=== PATIENT | female | born 1930 | race Caucasian/White ===

== ENCOUNTER → 2016-12-17 | Outpatient (CLI) | payer OTHER, BC ==
[~2016-12-17] MED LIST: ALBUAER2 INH; AMLO-110 PO; ATV/1 PO; CALC0.2510 PO; CYAN500T PO; ESTR10TA PV; GADAVIST IV PRN; GLC/500 PO; LEVO50CA2 PO; METO1TAB31 PO; PRVC10 PO; SYMIN/8045 INH; SYSTANE OPB; ZNTT/150 PO; [UNRECOGNIZED DRUG - OTHER] PO
--- NOTE | 2016-12-17 12:15 | DIAGNOSTIC IMAGING REPORT ---
MRI OF THE BRAIN COMBO CLINICAL HISTORY: Follow-up meningioma. COMPARISON STUDY: MRI of the brain dated 12/13/2015 and 07/09/2014. TECHNIQUE: MRI of the brain was performed utilizing various T1 and T2-weighted sequences in the axial, sagittal, and coronal planes. Contrast-enhanced sequences were acquired following the administration of 7.5 cc of Gadavist. FINDINGS: Brain parenchyma: There are age-related involutional changes noting mild to moderate patchy subcortical and periventricular microangiopathic disease. There is no hemorrhage or mass effect. There is no restricted diffusion typical for acute ischemia. There is unchanged appearance of a smoothly marginated 1.2 cm extra-axial nodule along the right posterior parietal convexity. This is best seen on axial postcontrast image #20, and the lesion is typical for a small meningioma. There is minimal restricted diffusion within this lesion. No additional enhancing mass lesion is identified on the postcontrast images. Anaya-white matter differentiation is preserved. No extra-axial fluid collection is seen. The cerebellar tonsils are normal in configuration. Ventricles, sulci, and cisterns: Prominent second or to involutional change. Pituitary and sella: The pituitary gland appears slightly heterogeneous and is similar to previous. Intracranial vasculature: Normal flow voids are maintained at the skull base. Orbits: The bony orbits are grossly intact. Orbital contents are normal in appearance noting bilateral ocular lens implants. Sinuses and mastoids: There is mild to moderate mucosal thickening within the right maxillary antrum. Trace mucosal thickening is seen within the ethmoid sinuses. There are bilateral mastoid effusions. Calvarium: Unremarkable. Cervical cord: Partially visualized cervical spinal cord is normal in morphology and signal intensity. IMPRESSION: 1. Unchanged appearance of a 12 mm homogeneously enhancing extra-axial nodule along the right posterior parietal convexity. This is typical for a meningioma and unchanged from prior studies. There is no associated mass effect. 2. No acute intracranial abnormality is seen. 3. Bilateral mastoid effusions. Electronically signed by: Familia Santiago M.D. 12/17/2016 12:14 PM Dictated Date/Time: 12/17/2016 12:08 PM
== END | disposition home or self-care (01) ==
LOC: C.MRIBC 10:45
PROVIDERS: ATTEND Psychiatry & Neurology Neurology
DX: D32.9 Benign neoplasm of meninges, unspecified (principal); H74.8X3 Other specified disorders of middle ear and mastoid, bilateral

== ENCOUNTER → 2016-12-21 | Outpatient (CLI) | payer OTHER, BC ==
[~2016-12-21] MED LIST changes: -GADAVIST IV PRN
--- NOTE | 2016-12-21 15:28 | DIAGNOSTIC IMAGING REPORT ---
CT OF THE CHEST WITHOUT IV CONTRAST CLINICAL HISTORY: Cough. COMPARISON STUDY: Chest CT January 12, 2013 and chest radiograph October 12, 2016. CT DOSE: 342.36 mGycm TECHNIQUE: Axial images of the chest were obtained without IV contrast. Images were reviewed in the axial, sagittal, and coronal planes. IV contrast was not administered for this examination. FINDINGS: Mild elevation of the right hemidiaphragm is again noted. Central airways are patent. The heart is mildly enlarged. There is no pericardial effusion. There is moderate coronary artery calcification. No consolidation is identified to suggest pneumonia. Subpleural and ground glass opacities represent atelectasis. The bony thorax is unremarkable. The gallbladder surgically absent. A water attenuation right renal lesion is partially imaged on this exam. This was shown to represent a cyst on renal ultrasound of November 26, 2014. No enlarged thoracic lymph nodes are present. IMPRESSION: 1. No areas of consolidation to suggest pneumonia. 2. Scattered linear and ground glass opacities suggestive of atelectasis. 3. No thoracic lymphadenopathy. Electronically signed by: Alonso Briones M.D. 12/21/2016 3:27 PM Dictated Date/Time: 12/21/2016 3:18 PM
== END | disposition home or self-care (01) ==
LOC: C.CTS 09:50
PROVIDERS: ATTEND Internal Medicine Pulmonary Disease
DX: R05 Cough (principal); R91.8 Other nonspecific abnormal finding of lung field

== ENCOUNTER → 2017-01-19 | Outpatient (CLI) | payer OTHER, BC ==
--- NOTE | 2017-01-19 15:28 | MAMMOGRAPHY REPORT ---
BILATERAL DIGITAL SCREENING MAMMOGRAM WITH CAD: 01/19/2017 CLINICAL HISTORY: Routine screening. Patient has no complaints. TECHNIQUE: Bilateral CC and MLO views were obtained. Current study was also evaluated with a Comput er Aided Detection (CAD) system. COMPARISON: Comparison is made to exams dated: 01/10/2016 mammogram, 01/08/2015 mammogram, 12/29/2012 mammogram, 12/28/2011 mammogram, 12/25/2010 mammogram, and 12/24/2009 mammogram - [facility]. BREAST COMPOSITION: There are scattered areas of fibroglandular density in both breasts. FINDINGS: The patient did not tolerate full compression. There are scattered benign rim calcificati ons in the breasts. No suspicious mass, architectural distortion or cluster of suspicious microcalc ifications is seen. IMPRESSION: ACR BI-RADS CATEGORY 1: NEGATIVE There is no mammographic evidence of malignancy. A 1 year screening mammogram is recommended. The p atient will receive written notification of the results. Approximately 10% of breast cancers are not detected with mammography. A negative mammographic repor t should not delay biopsy if a clinically suggestive mass is present. Miriam Harmon M.D. ay/:01/19/2017 14:11:18 Heating And Ventilation Engineer: Kera HARMONR, M, [facility] letter sent: Normal 1/2 BI-RADS Code: ACR BI-RADS Category 1: Negative
== END | disposition home or self-care (01) ==
LOC: C.MAMM 13:09
PROVIDERS: ATTEND Obstetrics & Gynecology
DX: Z12.31 Encounter for screening mammogram for malignant neoplasm of breast (principal)

== ENCOUNTER → 2017-03-10 | Outpatient (CLI) | payer OTHER, BC ==
[~2017-03-10] MED LIST changes: +METO-478 PO; -METO1TAB31 PO
[2017-03-10 09:59] LABS: ESTIMATED AVERAGE GLUCOSE 134 mg/dl; HA1C FLAG Normal (Normal)
[2017-03-10 10:24] LABS: PROLACTIN 13.82 ng/mL
[2017-03-10 10:29] LABS: AST/SGOT 17 U/L (15-37); BLOOD UREA NITROGEN 31 mg/dl (7-18); BUN/CREATININE RATIO 25.6 (10-20); CALCIUM 9.4 mg/dl (8.5-10.1); CARBON DIOXIDE 26 mmol/L (21-32); CHLORIDE 108 mmol/L (98-107); GLUCOSE 101 mg/dl (70-99); POTASSIUM 4.1 mmol/L (3.5-5.1); SODIUM 141 mmol/L (136-145)
[2017-03-10 10:54] LABS: ALT/SGPT 42 U/L (12-78); CHOLESTEROL 211 mg/dl (0-200); CHOLESTEROL/HDL RATIO 4.2; HDL CHOLESTEROL 50 mg/dl; LDL CHOLESTEROL CALCULATED 121 mg/dl; THYROID STIMULATING HORMONE 0.907 uIu/ml (0.300-4.500); TRIGLYCERIDES 200 mg/dl (0-150); VERY LOW DENSITY LIPOPROT CALC 40 mg/dl
== END | disposition home or self-care (01) ==
LOC: C.LAB1850 08:44
PROVIDERS: ATTEND Internal Medicine Endocrinology, Diabetes & Metabolism
DX: E03.9 Hypothyroidism, unspecified (principal); M81.0 Age-related osteoporosis without current pathological fracture; E55.9 Vitamin D deficiency, unspecified; I10 Essential (primary) hypertension; E23.6 Other disorders of pituitary gland; E78.5 Hyperlipidemia, unspecified; E06.3 Autoimmune thyroiditis; Z86.39 Personal history of other endocrine, nutritional and metabolic disease; E11.9 Type 2 diabetes mellitus without complications; E66.9 Obesity, unspecified

== ENCOUNTER → 2017-04-01 | Outpatient (CLI) | payer OTHER, BC ==
--- NOTE | 2017-04-01 09:26 | DIAGNOSTIC IMAGING REPORT ---
(BARIUM SWALLOW) ESOPHAGUS CLINICAL HISTORY: Difficulty swallowing. Primary liquid dysphagia. COMPARISON STUDY: None. FLUOROSCOPY TIME: 0.5 minutes. FINDINGS: 7 fluoroscopic images were obtained. Note was made of moderate silent tracheal aspiration with the initial swallows. Therefore, this study was not completed. However, no definite esophageal mass or stricture was identified. Suspected moderate esophageal dysmotility is noted. Sensitivity for detection of mucosal lesions is diminished on the exam. IMPRESSION: 1. Moderate silent tracheal aspiration with initial swallows on this exam. As a result, this study was not completed but no definite mass or stricture was identified within the esophagus. A modified barium swallow could be obtained to further evaluate the swallowing mechanism. 2. Suspected moderate esophageal dysmotility. Electronically signed by: Alonso Briones M.D. 04/01/2017 9:24 AM Dictated Date/Time: 04/01/2017 9:22 AM
== END | disposition home or self-care (01) ==
LOC: C.RAD 08:35
DX: R13.10 Dysphagia, unspecified (principal)

== ENCOUNTER → 2017-06-09 | Outpatient (CLI) | payer OTHER, BC ==
[~2017-06-09] MED LIST changes: -METO-478 PO; +METO1TAB31 PO
[2017-06-09 13:36] LABS: URINE APPEARANCE CLEAR (CLEAR); URINE BILIRUBIN NEG (NEG); URINE COLOR YELLOW; URINE EPITHELIAL CELL AUTO >30 /lpf (0-5); URINE NITRITE NEG (NEG); URINE PH 6.5 (4.5-7.5); URINE SPECIFIC GRAVITY 1.017 (1.000-1.030); UROBILINOGEN NEG (NEG)
[2017-06-09 13:47] LABS: MANUAL MICROSCOPIC REQUIRED? NO; REVIEW REQ? YES
== END | disposition home or self-care (01) ==
LOC: C.LAB1850 11:53
PROVIDERS: ATTEND Internal Medicine
DX: R39.9 Unspecified symptoms and signs involving the genitourinary system (principal)

== ENCOUNTER → 2017-06-18 | Outpatient (CLI) | payer OTHER, BC ==
--- NOTE | 2017-06-18 14:02 | DIAGNOSTIC IMAGING REPORT ---
VIDEO SWALLOW HISTORY: R13.10 Difficulty [id number] Abnormal barium [id number] TECHNIQUE: Video fluoroscopic evaluation of swallowing was performed in the AP and lateral projections by the speech pathology staff. The patient is fed nectar-thick and thin liquid barium, a barium coated wafer, and barium pudding. FLUOROSCOPY TIME: 3.4 minutes. A cine loop submitted. COMPARISON STUDY: Barium swallow 04/01/2017. FINDINGS: There is normal hyoid excursion and epiglottic deflection. No significant penetration or aspiration identified. Swallowing function is within normal limits. Mild vallecular residue with the thicker barium consistencies. Mild esophageal dysmotility. IMPRESSION: 1. No aspiration identified. Mild esophageal dysmotility 2. Please see the speech pathologist report for detailed findings and recommendations. Electronically signed by: Arpan Queen M.D. 06/18/2017 2:01 PM Dictated Date/Time: 06/18/2017 1:59 PM
--- NOTE | 2017-06-18 15:40 | SWALLOWING EVALUATION ---
HISTORY: This 86 year old woman was referred for a video swallow study at [facility] in order to rule out aspiration and identify the safest consistencies for optimal oral intake. PMH is significant for HTN, anemia, GERD, asthma, anxiety, HLD, and hyperthyroidism. She reports having swallowing difficulties where she will cough and choke on foods that scatter, such as rice. The patient participated in a Barium Swallow study on 04/01/17, where moderate tracheal aspiration was found and the study was terminated. This, in addition to her c/o above, prompted this study. PROCEDURE: The patient was seen in the Radiology Department of [facility] for the V[facility]SS. Cursory examination of the oral cavity revealed natural dentition in fair condition. Movement of the articulators was wnl. The patient was seated on a stool and was viewed in both the Anterior-Posterior (A-P) and Lateral planes. Volitional phonation exercises completed in the A-P plane revealed bilateral vocal fold movement and vocal intensity was judged to be wnl. In the lateral plane, the patient was given the following boluses: 1 tsp. thin liquid barium x 2, single swallow thin liquid barium self-presented from a cup x1, sequential swallows of thin liquid barium self-presented from a straw, 1 tsp. nectar-thick liquid barium, single swallow nectar-thick liquid barium self-presented from a cup x1, 1 tsp. barium pudding, and 1 club cracker coated in barium pudding. The patient was then repositioned into the A-P plane and given the following boluses: 1 tsp. nectar thick barium and 1 tsp. barium pudding. RESULTS: Oral Stage: Lip closure was adequate. The patient was able to maintain a cohesive liquid bolus upon command without lateral or posterior escape. Mastication was disorganized and lingual motion for bolus transport was noted to be slow. There was a collection of retention lining the tongue and palate after the swallow. The initiation of the pharyngeal swallow was delayed and triggered when the bolus head reached valleculae. Pharyngeal Stage: Soft palate elevation was complete. Laryngeal elevation revealed complete superior movement of the thyroid cartilage with complete approximation of the arytenoids to the epiglottic base. Anterior hyoid excursion was partially reduced. Epiglottic deflection was also partially reduced. Laryngeal vestibular closure was complete as there was no contrast located in the vestibule at the height of the swallow. The pharyngeal stripping wave was present yet diminished. Pharyngeal contraction was incomplete. There was partial distention and partial duration of the opening to the pharyngoesophageal segment (PES). Tongue base retraction was reduced, with a narrow column of contrast located between the tongue base and pharyngeal wall during the swallow. There was retention located in the valleculae and in the pyriforms after the swallow. There was no evidence of laryngeal penetration or aspiration during the study. A liquid wash and/or second swallow assisted to clear some of the retention located in the pharynx after the swallow, but not fully. The patient was aware of the retention. Esophageal stage: There was esophageal retention located in the mid to distal esophagus with retrograde flow below the PES. A liquid wash assisted to clear some of this retention. SUMMARY/RECOMMENDATIONS: This patient presents with mild anabel-pharyngeal dysphagia. She also has s/s of esophageal dysfunction. The following is recommended: 1. Regular "slippery" diet and thin liquids. Slippery diet would include avoiding foods that are dry, thick, pasty, and doughy. Use of condiments such as sauce, gravy, butter, etc on dry foods. 2. Aspiration and GERD (reflux) precautions. Fully upright while eating and 30 minutes after meals. Head of the bed should be elevated to 30 degrees at all times to include while asleep. 3. Safe swallow strategies: Alternate solids and liquids, small frequent meals. Rest breaks. 4. Follow up with PCP. Consider implementing use of medication management as needed for reflux in order to improve comfort while eating. A summary of the results and recommendations was discussed with the patient immediately following the study with verbal understanding. Both verbal and written information re: slippery diet was also given with verbal understanding. Patient reports typically eating 5 small meals a day and in general as well. Thank you for referral of this patient. Please contact me at if any additional information is needed.
== END | disposition home or self-care (01) ==
LOC: C.RAD 12:58
PROVIDERS: ATTEND Physician Assistant
DX: R13.10 Dysphagia, unspecified (principal); R93.3 Abnormal findings on diagnostic imaging of other parts of digestive tract

== ENCOUNTER → 2017-06-25 | Outpatient (CLI) | payer OTHER, BC ==
[2017-07-08 14:56] LABS: O&P SOURCE OTHER-STOOL
== END | disposition home or self-care (01) ==
LOC: C.LABSPEC 10:21
PROVIDERS: ATTEND Internal Medicine
DX: K52.9 Noninfective gastroenteritis and colitis, unspecified (principal)

== ENCOUNTER → 2017-11-05 | Outpatient (CLI) | payer OTHER, BC ==
[~2017-11-05] MED LIST changes: -AMLO-110 PO; +AMLO5TAB3 PO; +METO-478 PO; -METO1TAB31 PO; +RANI150T85 PO; -ZNTT/150 PO
[2017-11-05 16:02] LABS: BASO % 0.7 %; BASO ABS # 0.06 K/uL (0-0.2); EOS % 0.7 %; EOS ABS # 0.06 K/uL (0-0.5); HEMATOCRIT 41.1 % (37-47); HEMOGLOBIN 13.5 g/dL (12.0-16.0); IG# 0.02 K/uL (0.00-0.02); LYMPH % 31.2 %; LYMPH ABS # 2.53 K/uL (1.2-3.4); MEAN CELL VOLUME 94.7 fL (80-100); MEAN CORPUSCULAR HEMOGLOBIN 31.1 pg (25-34); MEAN CORPUSCULAR HGB CONC 32.8 g/dl (32-36); MEAN PLATELET VOLUME 10.8 fL (7.4-10.4); MONO % 7.8 %; MONO ABS # 0.63 K/uL (0.11-0.59); NEUT % 59.4 %; NEUT ABS # 4.81 K/uL (1.4-6.5); PLATELET COUNT 240 K/uL (130-400); RED CELL DISTRIBUTION WIDTH CV 13.6 % (11.5-14.5); RED CELL DISTRIBUTION WIDTH SD 47.6 fL (36.4-46.3); WHITE BLOOD COUNT 8.11 K/uL (4.8-10.8)
[2017-11-05 16:28] LABS: BLOOD UREA NITROGEN 38 mg/dl (7-18); CALCIUM 10.8 mg/dl (8.5-10.1); CARBON DIOXIDE 27 mmol/L (21-32); CREATININE 1.41 mg/dl (0.60-1.20); GLUCOSE 87 mg/dl (70-99); POTASSIUM 4.3 mmol/L (3.5-5.1); SODIUM 137 mmol/L (136-145)
[2017-11-06 07:06] LABS: HEMOGLOBIN A1C 6.1 % (4.5-5.6)
== END | disposition home or self-care (01) ==
LOC: C.LAB1850 15:28
PROVIDERS: ATTEND Physician Assistant
DX: E03.9 Hypothyroidism, unspecified (principal); E06.3 Autoimmune thyroiditis; I10 Essential (primary) hypertension; E11.9 Type 2 diabetes mellitus without complications

== ENCOUNTER → 2017-11-09 | Outpatient (CLI) | payer OTHER, BC ==
[~2017-11-09] MED LIST changes: +AMLO-110 PO; -AMLO5TAB3 PO; -RANI150T85 PO; +ZNTT/150 PO
== END | disposition home or self-care (01) ==
LOC: C.LABSPEC 17:43
PROVIDERS: ATTEND Physician Assistant
DX: E11.9 Type 2 diabetes mellitus without complications (principal)

== ENCOUNTER → 2017-12-07 | Outpatient (CLI) | payer OTHER, BC ==
[~2017-12-07] MED LIST changes: +RANI150T85 PO; -ZNTT/150 PO
[2017-12-07 15:13] LABS: BLOOD UREA NITROGEN 32 mg/dl (7-18); CALCIUM 10.1 mg/dl (8.5-10.1); CARBON DIOXIDE 27 mmol/L (21-32); CREATININE 1.45 mg/dl (0.60-1.20); GLUCOSE 122 mg/dl (70-99); POTASSIUM 3.7 mmol/L (3.5-5.1); SODIUM 137 mmol/L (136-145)
== END | disposition home or self-care (01) ==
LOC: C.LAB1850 13:50
PROVIDERS: ATTEND Internal Medicine
DX: E11.9 Type 2 diabetes mellitus without complications (principal)

== ENCOUNTER → 2017-12-24 | Outpatient (CLI) | payer OTHER, BC ==
[2017-12-24 13:18] LABS: BLOOD UREA NITROGEN 29 mg/dl (7-18); CALCIUM 10.4 mg/dl (8.5-10.1); CARBON DIOXIDE 26 mmol/L (21-32); CREATININE 1.38 mg/dl (0.60-1.20); GLUCOSE 96 mg/dl (70-99); POTASSIUM 4.2 mmol/L (3.5-5.1); SODIUM 139 mmol/L (136-145)
== END | disposition home or self-care (01) ==
LOC: C.LAB1850 12:16
PROVIDERS: ATTEND Internal Medicine
DX: N28.9 Disorder of kidney and ureter, unspecified (principal)

== ENCOUNTER → 2018-01-20 | Outpatient (CLI) | payer OTHER, BC ==
--- NOTE | 2018-01-20 15:08 | MAMMOGRAPHY REPORT ---
BILATERAL DIGITAL SCREENING MAMMOGRAM TOMOSYNTHESIS WITH CAD: 01/20/2018 CLINICAL HISTORY: Routine screening. Patient has no complaints. TECHNIQUE: Breast tomosynthesis in addition to standard 2D mammography was performed. Current study was also evaluated with a Computer Aided Detection (CAD) system. COMPARISON: Comparison is made to exams dated: 01/19/2017 mammogram, 01/10/2016 mammogram, 01/08/2015 m ammogram, 01/01/2014 mammogram, 12/29/2012 mammogram, and 12/28/2011 mammogram - [facility] nter. BREAST COMPOSITION: There are scattered areas of fibroglandular density in both breasts. FINDINGS: No suspicious masses, calcifications, or areas of architectural distortion are noted in ei ther breast. There has been no significant interval change compared to prior exams. Scattered bilater al benign-appearing calcifications are not significantly changed. IMPRESSION: ACR BI-RADS CATEGORY 2: BENIGN There is no mammographic evidence of malignancy. A 1 year screening mammogram is recommended. The pa tient will receive written notification of the results. Approximately 10% of breast cancers are not detected with mammography. A negative mammographic report should not delay biopsy if a clinically suggestive mass is present. Milana Gotti M.D. /:01/20/2018 13:42:12 Perfume Maker: Cece KENNEDY)(M), [facility] letter sent: Normal 1/2 BI-RADS Code: ACR BI-RADS Category 2: Benign
== END | disposition home or self-care (01) ==
LOC: C.MAMM 12:36
PROVIDERS: ATTEND Obstetrics & Gynecology
DX: Z12.31 Encounter for screening mammogram for malignant neoplasm of breast (principal)

== ENCOUNTER → 2018-02-03 | Outpatient (CLI) | payer OTHER, BC | END | disposition home or self-care (01) | LOC: C.PATHSPEC 13:20 | PROVIDERS: ATTEND Dermatology | DX: C44.622 Squamous cell carcinoma of skin of right upper limb, including shoulder (principal); C44.629 Squamous cell carcinoma of skin of left upper limb, including shoulder; L82.1 Other seborrheic keratosis; L57.0 Actinic keratosis; B07.9 Viral wart, unspecified ==

== ENCOUNTER → 2018-02-21 | Outpatient (CLI) | payer OTHER, BC ==
[2018-02-21 12:50] LABS: ALT/SGPT 71 U/L (12-78); AST/SGOT 56 U/L (15-37); BLOOD UREA NITROGEN 26 mg/dl (7-18); CALCIUM 9.6 mg/dl (8.5-10.1); CARBON DIOXIDE 26 mmol/L (21-32); CREATININE 1.21 mg/dl (0.60-1.20); GLUCOSE 107 mg/dl (70-99); SODIUM 140 mmol/L (136-145)
[2018-02-21 12:53] LABS: CHOLESTEROL 201 mg/dl (0-200); LDL CHOLESTEROL CALCULATED 102 mg/dl
[2018-02-21 12:56] LABS: HEMOGLOBIN A1C 6.2 % (4.5-5.6)
== END | disposition home or self-care (01) ==
LOC: C.LAB1850 09:57
PROVIDERS: ATTEND Internal Medicine Endocrinology, Diabetes & Metabolism
DX: E23.6 Other disorders of pituitary gland (principal); E11.9 Type 2 diabetes mellitus without complications; E78.5 Hyperlipidemia, unspecified; Z86.39 Personal history of other endocrine, nutritional and metabolic disease

== ENCOUNTER 2018-11-16 15:38 | Observation (INO) ==
[2018-11-16] MEDS ORDERED: SODIUM CHLORIDE 0.9% 500 ML IV SCH (16:30)
--- NOTE | 2018-11-16 17:11 | Emergency Department Note ---
Entered by Niki Naranjo acting as a scribe for History of Present Illness General Chief complaint: Constipation Stated complaint: HEMROIDS, CONSTIPATION Time Seen by Provider: 11/16/18 16:24 Source: patient Mode of arrival: ambulatory Limitations: no limitations History of Present Illness Provider complaint: constipation Onset (ago): day(s) 5 Location: buttocks Pain Consistency: + other (persistent) Maximum Pain Intensity: 10 Current Pain Intensity: 9 Quality: + other (constipation) Associated symptoms: + nausea/vomiting (nausea, no emesis) and + other (abd pain ); no cough and no fever/chills The patient is a 87 year old female who presents to the Emergency Room with complaints of a persistent constipation that began 5 days ago. The patient denies any similar episodes in the past, explaining that she usually has episodes of diarrhea secondary to having a cholecystectomy performed. The patient states that she has also had abdominal pain and as well as rectal pain secondary to hemorrhoids. She notes that she has also had episodes nausea but denies any vomiting as well as fevers or coughs. The patient denies taking any medication to alleviate her constipation, but reports she has been taking some for her hemorrhoids. The patient also states that she has not been drinking many fluids. She denies taking any blood thinners. Home Medications Home Medications Medication Instructions Recorded Confirmed Type acetaminophen-codeine 1 tab PO QID PRN 11/14/18 11/16/18 History [Tylenol-Codeine #3] albuterol sulfate [Ventolin HFA] 2 puff INHALATION Q4 PRN 11/14/18 11/16/18 History amlodipine 2.5 mg PO QAM 11/14/18 11/16/18 History amlodipine 5 mg PO HS 11/14/18 11/16/18 History aspirin [Aspir-81] 81 mg PO Q2D 11/14/18 11/16/18 History budesonide-formoterol [Symbicort] 2 puff INHALATION BID 11/14/18 11/16/18 History calcitriol 0.5 mcg PO BID 11/14/18 11/16/18 History cholestyramine (with sugar) 4 g PO BID 11/14/18 11/16/18 History metformin 500 mg PO DAILY 11/14/18 11/16/18 History peg 400-propylene glycol [Systane 2 drp OPB TID 11/14/18 11/16/18 History Ultra] ranitidine HCl [Zantac 75] 150 mg PO BID PRN 11/14/18 11/16/18 History thyroid (pork) [[place] Thyroid] 30 mg PO QAM 11/14/18 11/16/18 History acetaminophen [Tylenol] 325 - 650 mg PO QID PRN 11/16/18 11/16/18 History conjugated estrogens [Premarin] 1 applic VAGINAL UD 11/16/18 11/16/18 History cyanocobalamin (vitamin B-12) 500 mcg PO DAILY 11/16/18 11/16/18 History [Vitamin B-12] estradiol [Vagifem] 10 mcg VAGINAL 2XWK 11/16/18 11/16/18 History metoprolol succinate 12.5 mg PO Q OTHER DAY 11/16/18 11/16/18 History triamcinolone acetonide 1 applic TOPICAL BID PRN 11/16/18 11/16/18 History Allergies Allergy/AdvReac Type Severity Reaction Status Date / Time levofloxacin Allergy Mild ITCHING Verified 11/16/18 19:03 (TAVANIC = LEVOFLOXACIN IV,) Penicillins Allergy Mild RASH Verified 11/16/18 19:03 latex Allergy Unknown RASH Verified 11/16/18 19:03 metronidazole Allergy Unknown UNKNOWN Verified 11/16/18 19:03 Past Med/Surg History Medical History Asthma Obstipation (Acute) Ectopic beats Right bundle branch block (RBBB) Hemorrhoids (Chronic) Bleeding hemorrhoid Hypothyroid Diabetes Kidney stone Hypertension (Chronic) Social History Current Living Situation: Alone Other Information That Helps Us Care for You: No Feels Safe at Home: Yes Safety Concerns: Feels Safe At This Time Smoking Status: Former smoker Hx Alcohol Use: No Hx Substance Use: No Beliefs That Will Affect Care: None Preferred Language: Persian Communication Ability: Effective Anchorman Required: No Review of Systems See HPI for pertinent positives & negatives. and A total of 10 systems reviewed and were otherwise negative Physical Exam Vital Signs Vital Signs - 24 hr 11/16/18 15:44 11/16/18 19:15 11/16/18 19:22 Temperature 36.6 C Temperature Source Oral Sepsis Recent Fever Within 48 Hours No Sepsis Action Taken by Nursing No Action Required Pulse Rate 82 75 Pulse Rate [Radial] 75 Pulse Rhythm Regular Pulse Rhythm [Radial] Regular Pulse Strength Normal Respiratory Rate 20 18 18 Respiratory Effort / Characteristics Non-Labored Spontaneous Respiratory Depth Normal Normal Respiratory Pattern Regular Blood Pressure 134/85 166/72 H Blood Pressure [Left Arm] 166/72 H Blood Pressure [Right Arm] Blood Pressure Mean 101 Blood Pressure Mean [Left Arm] 103 Blood Pressure Mean [Right Arm] Blood Pressure Position Sitting Blood Pressure Position [Right Arm] Pulse Oximetry 96 97 97 Oxygen Delivery Method Room Air Room Air Room Air 11/16/18 19:25 11/16/18 21:28 11/17/18 00:01 Temperature 36.9 C 36.9 C Temperature Source Oral Oral Sepsis Recent Fever Within 48 Hours Sepsis Action Taken by Nursing Pulse Rate Pulse Rate [Radial] 83 61 Pulse Rhythm Pulse Rhythm [Radial] Pulse Strength Respiratory Rate 18 18 Respiratory Effort / Characteristics Respiratory Depth Respiratory Pattern Blood Pressure Blood Pressure [Left Arm] 185/97 H 119/69 Blood Pressure [Right Arm] 196/78 H 138/70 Blood Pressure Mean Blood Pressure Mean [Left Arm] 126 85 Blood Pressure Mean [Right Arm] 117 92 Blood Pressure Position Blood Pressure Position [Right Arm] Lying Pulse Oximetry 95 95 Oxygen Delivery Method Room Air Room Air GENERAL: Awake, alert, uncomfortable appearing, in no distress HENT: Normocephalic, atraumatic. Oropharynx with dry mucous membranes and otherwise unremarkable. EYES: Normal conjunctiva. Sclera non-icteric. NECK: Supple. No nuchal rigidity. FROM. No JVD. RESPIRATORY: Clear to auscultation. CARDIAC: Regular rate, normal rhythm. Extremities warm and well perfused. Pulses equal. ABDOMEN: Mild abdominal distention with mild lower abdominal tenderness to palpation but soft. No rebound or guarding. No masses. RECTAL: Engorged, external hemorrhoids, tender to light touch with brown stool present. MUSCULOSKELETAL: Chest examination reveals no tenderness. The back is symmetrical on inspection without obvious abnormality. There is no CVA tenderness to palpation. No joint edema. LOWER EXTREMITIES: Calves are equal size bilaterally and non-tender. No edema. No discoloration. NEURO: Normal sensorium. No sensory or motor deficits noted. SKIN: No rash or jaundice noted. Course 1633: Past medical records reviewed. The patient was evaluated in room B9, and a complete history and physical examination were performed. 1657: I discussed the patients case with Dr. Juliano CURRIE. He recommends that the patient continue to try oral regimens and if it does not work, she could proceed with sedation for disimpaction, but that it does not have to be performed by a specialist. 1748: I reviewed the patient's case with Dr. Flores - [facility] Hospitalist. He will evaluate the patient for further management. Administered Medications Acetaminophen (Tylenol) 650 mg PO Q4H PRN PRN Reason: Moderate Pain Stop: 12/16/18 20:00 Last Admin: 11/17/18 00:14 Dose: 650 mg Potassium Chloride/Dextrose/Sod Cl (D5w And 1/2nss + 20meq Kcl) 20 meq in 1, 000 mls @ 80 mls/hr IV .[id number] YUN Stop: 12/16/18 20:29 Last Admin: 11/16/18 21:23 Dose: 80 mls/hr Discontinued Medications Bisacodyl (Dulcolax) 20 mg PO NOW ONE Stop: 11/16/18 20:31 Last Admin: 11/16/18 22:24 Dose: 20 mg Sodium Chloride (Nss) 500 mls @ 999 mls/hr IV .Q31M YUN Stop: 11/16/18 17:00 Last Infusion: 11/16/18 18:02 Dose: 0 mls/hr Admin: 11/16/18 17:19 Dose: 999 mls/hr Lidocaine HCl (Xylocaine Jely 2%) 5 ml EXT 2100 ONE Stop: 11/16/18 21:01 Last Admin: 11/16/18 22:25 Dose: 5 ml Lorazepam (Ativan) 1 mg PO NOW STA Stop: 11/16/18 20:02 Last Admin: 11/16/18 21:15 Dose: 1 mg Polyethylene Glycol (Miralax Powder Packet) 17 gm PO NOW STA Stop: 11/16/18 17:50 Last Admin: 11/16/18 19:00 Dose: Not Given Polyethylene Glycol (Miralax Powder Packet) 17 gm PO Q1H YUN Stop: 11/16/18 21:31 Last Admin: 11/16/18 23:53 Dose: Not Given Admin: 11/16/18 22:25 Dose: 17 gm Medical Decision Making Differential Diagnosis Differential diagnosis includes: gastritis, peptic ulcer disease, GERD, gallbladder disease, pancreatitis, small bowel obstruction, acute coronary syndrome, pericarditis, ischemic bowel, irritable bowel disease, irritable bowel syndrome, appendicitis, diverticulitis, malignancy, hernia, UTI, torsion, perforation, trauma, and kidney stones. Medical Records Attestation: I reviewed the patient's medical records. Home Medications Current Medication List: was personally reviewed by me Laboratory Data Attestation: I reviewed the patient's lab results. Result diagrams: 11/16/18 17:07 11/16/18 20:46 Lab Results 11/16/18 11/16/18 11/16/18 Range/Units 17:07 17:07 20:46 WBC 15.32 H (4.8-10.8) K/uL RBC 4.17 L (4.2-5.4) M/uL Hgb 12.6 (12.0-16.0) g/dL Hct 38.6 (37-47) % MCV 92.6 (80-100) fL MCH 30.2 (25-34) pg MCHC 32.6 (32-36) g/dL RDW Std Deviation 47.0 H (36.4-46.3) fL RDW Coeff of Gen 14.0 (11.5-14.5) % Plt Count 216 (130-400) K/uL MPV 11.3 H (7.4-10.4) fL Immature Gran % (Auto) 0.4 % Neut % (Auto) 75.6 % Lymph % (Auto) 14.4 % Wolfe % (Auto) 9.3 % Eos % (Auto) 0.2 % Baso % (Auto) 0.1 % Immature Gran # (Auto) 0.06 H (0.00-0.02) K/uL Neut # (Auto) 11.58 H (1.4-6.5) K/uL Lymph # (Auto) 2.20 (1.2-3.4) K/uL Wolfe # (Auto) 1.43 H (0.11-0.59) K/uL Eos # (Auto) 0.03 (0-0.5) K/uL Baso # (Auto) 0.02 (0-0.2) K/uL Sodium Cancelled 139 Potassium Cancelled 3.8 Chloride Cancelled 107 Carbon Dioxide Cancelled 22 Anion Gap Cancelled 10.0 BUN Cancelled 24 H Creatinine Cancelled 1.28 H Est Cr Clr Drug Dosing Cancelled 29.7 Est GFR ( Amer) Cancelled 43.8 Est GFR (Non-Af Amer) Cancelled 37.8 BUN/Creatinine Ratio Cancelled 19.1 Glucose Cancelled 112 H Calcium Cancelled 9.4 Total Bilirubin Cancelled 0.9 AST Cancelled 36 ALT Cancelled 56 Alkaline Phosphatase Cancelled 93 Total Protein Cancelled 6.7 Albumin Cancelled 2.8 L Globulin Cancelled 3.9 Albumin/Globulin Ratio Cancelled 0.7 L Lipase Cancelled Imaging Data Radiologist's Impression: Radiology results as stated below per my review and the radiologist's interpretation: KUB HISTORY: severe constipation COMPARISON: Abdomen and pelvis CT 11/14/2018. KUB 10/05/2019. FINDINGS: There is again noted a large stool ball within the rectum. This measures approximately 8.6 cm. There is moderate well-formed stool seen throughout the remaining colon. No dilated loops of small bowel to suggest an obstruction. Prior cholecystectomy. No renal calculi. No ureteral calculi. No pneumoperitoneum or pneumatosis. IMPRESSION: No significant change in the large rectal stool ball which measures 8.6 cm. Electronically signed by: Arpan Queen M.D. 11/16/2018 5:30 PM Blood Pressure Blood Pressure Findings: Normal blood pressure Blood Pressure Disposition: further management by hospitalist SANDRA Narrative The patient is a pleasant 87-year-old woman with a past medical history of hypertension, diabetes, hypothyroidism who presents to emergency department with persistent constipation and lower abdominal pain after being seen in the ED on 11/14 for similar symptoms with subsequent CT demonstrating extensive stool burden with associated stercoral proctitis per hpi. Patient reports trying topical Preparation H and lidocaine without improvement in her hemorrhoids or her constipation. On arrival the patient is uncomfortable but no acute distress, afebrile stable vital signs. On exam the patient has mild lower abdominal distention with tenderness but no peritoneal signs. External rectal exam demonstrates engorged external hemorrhoids which are not thrombosed but exquisitely tender to light touch. There is scant brown stool which has oozed from her rectum. I discussed with the patient (and son at bedside) that the typical treatment for this would be for manual disimpaction however she is adamant that she cannot tolerate any manipulation without complete sedation given her severe rectal pain. Additionally she reports that she cannot even tolerate an enema or suppository due to the pain. I explained to the patient that given her age and comorbidities emergency department sedation would not be appropriate given the indication would be for disimpaction of her constipation. I discussed the case with Dr. Henao, esteban CURRIE, who recommends we trial aggressive oral laxative such as MiraLAX and if unsuccessful agrees would require disimpaction which while requiring sedation would not necessarily require a specialist, per se, to perform the disimpaction. Thus, admission is reasonable. WBC 15.3, nonspecific. H/H and platelets within normal limits. Creatinine 1.28 within patient's baseline range. No acidosis. KUB again demonstrates the patient's large stool ball measuring 8.6 cm. Case was d/w Dr. Flores, [facility] hospitalist, who will evaluate the patient for admission. Impression & Plan Obstipation, Proctitis Discharge Plan Visit Data *Final* Discharge Date/Time: 11/16/18 19:22 Chief Complaint: Constipation Stated Complaint: HEMROIDS, CONSTIPATION ED Provider: Juan Gutierres Discharge Problem: Obstipation, Proctitis Patient Disposition: Admitted As Inpatient Discharge Instructions Interventions: ED Discharge Assessment Last Done: 11/16/18 19:22 The scribe's documentation has been prepared under my direction and personally reviewed by me in its entirety. I confirm that the note above accurately reflects all work, treatment, procedures, and medical decision making performed by me.
[2018-11-16 17:22] LABS: Basophils # (auto) 0.02 K/uL (0-0.2); Basophils % (auto) 0.1 %; Eosinophils # (auto) 0.03 K/uL (0-0.5); Eosinophils % (auto) 0.2 %; Hematocrit (blood only) 38.6 % (37-47); Hemoglobin 12.6 g/dL (12.0-16.0); Immature Granulocytes # (auto) 0.06 K/uL (0.00-0.02); Immature Granulocytes % (auto) 0.4 %; Lymphocytes % (auto) 14.4 %; Mean Corpuscular Hgb Conc 32.6 g/dL (32-36); Mean Corpuscular Volume 92.6 fL (80-100); Mean Platelet Volume 11.3 fL (7.4-10.4); Monocytes # (auto) 1.43 K/uL (0.11-0.59); Monocytes % (auto) 9.3 %; Neutrophils # (auto) 11.58 K/uL (1.4-6.5); Neutrophils % (auto) 75.6 %; Platelet Count 216 K/uL (130-400); Red Blood Count 4.17 M/uL (4.2-5.4); White Blood Count 15.32 K/uL (4.8-10.8)
--- NOTE | 2018-11-16 17:31 | XRay Report ---
KUB HISTORY: severe constipation COMPARISON: Abdomen and pelvis CT 11/14/2018. KUB 10/05/2019. FINDINGS: There is again noted a large stool ball within the rectum. This measures approximately 8.6 cm. There is moderate well-formed stool seen throughout the remaining colon. No dilated loops of smal l bowel to suggest an obstruction. Prior cholecystectomy. No renal calculi. No ureteral calculi. No pneumoperitoneum or pneumatosis. IMPRESSION: No significant change in the large rectal stool ball which measures 8.6 cm. Electronically signed by: Arpan Queen M.D. 11/16/2018 5:30 PM
[2018-11-16] MEDS ORDERED: POLYETHYLENE (MIRALAX) 17 GM PACK PO STA (17:49)
--- NOTE | 2018-11-16 18:11 | History & Physical Report ---
Date of Service November 16, 2018 Assessment & Plan (1) Obstipation: - Admit to med surg for observation - Treat with dulcolax 20 mg PO, miralax 17 mg x 2 doses PO, will ask lidocaine jelly to be applied perianally prior to milk of molasses enema. - KUB reviewed showing 8.6 cm stool ball - Zofran - NPO for now until after BM, can likely start clear liquids in morning - D5W + KCl - GI consulted, Dr. Henao for hemorrhoid eval (2) Hemorrhoids: - Lidocaine jelly to surrounding area prior to enema to alleviate some pain. - GI consulted, Dr. Henao for hemorrhoid tx, - pt has tried preparation-H OTC (3) Hypothyroid: - Continue levothyroxine (4) Diabetes: - Last A1C was 6.2 in May 2018 and was discussed with her PCP- Dr. Silva that they would eventuallly discontinue metformin. She has not had any trouble with her glucoses as an outpatient. - Follow glucose with am prp, no achs checks needed - HH/Diabetic diet once allowed. (5) Asthma: - Continue home inhalers of ventolin and symbicort (6) Hypertension: - Cont amlodipin 2.5 mg QAM and 5 mg QPM, metoprolol succ 12.5 mg every other day, asa 81 mg (7) DVT prophylaxis: lovenox subq, teds, scds History of Present Illness Primary Care Provider: Ramirez Leong MD This is a 87 yo F with PMHx of hemorrhoids, hypothyroidism, DM, HTN, HLD, asthma , who presents with abdominal pain. Pt was seen here in the ER on 11/14 for similar complaints. She continues to have worsening pain which started 5 days ago. She has been unable to tolerate oral intake due to nausea, no vomiting. She admits to very poor water intake at baseline and may only have 1 8oz cup total in a day. Imaging of the abdomen reveals large stool ball which measures 8.6 cm. This was demonstrated on CT from imaging on 11/14 and in comparison is relatively unchanged. Pt is very apprehensive about treatment with enema but is agreeable. Allergies Allergy/AdvReac Type Severity Reaction Status Date / Time levofloxacin Allergy Mild ITCHING Verified 11/16/18 19:03 (TAVANIC = LEVOFLOXACIN IV,) Penicillins Allergy Mild RASH Verified 11/16/18 19:03 latex Allergy Unknown RASH Verified 11/16/18 19:03 metronidazole Allergy Unknown UNKNOWN Verified 11/16/18 19:03 Home Medications Home Medications Medication Instructions Recorded Confirmed Type acetaminophen-codeine 1 tab PO QID PRN 11/14/18 11/16/18 History [Tylenol-Codeine #3] albuterol sulfate [Ventolin HFA] 2 puff INHALATION Q4 PRN 11/14/18 11/16/18 History amlodipine 2.5 mg PO QAM 11/14/18 11/16/18 History amlodipine 5 mg PO HS 11/14/18 11/16/18 History aspirin [Aspir-81] 81 mg PO Q2D 11/14/18 11/16/18 History budesonide-formoterol [Symbicort] 2 puff INHALATION BID 11/14/18 11/16/18 History calcitriol 0.5 mcg PO BID 11/14/18 11/16/18 History cholestyramine (with sugar) 4 g PO BID 11/14/18 11/16/18 History metformin 500 mg PO DAILY 11/14/18 11/16/18 History peg 400-propylene glycol [Systane 2 drp OPB TID 11/14/18 11/16/18 History Ultra] ranitidine HCl [Zantac 75] 150 mg PO BID PRN 11/14/18 11/16/18 History thyroid (pork) [[place] Thyroid] 30 mg PO QAM 11/14/18 11/16/18 History acetaminophen [Tylenol] 325 - 650 mg PO QID PRN 11/16/18 11/16/18 History conjugated estrogens [Premarin] 1 applic VAGINAL UD 11/16/18 11/16/18 History cyanocobalamin (vitamin B-12) 500 mcg PO DAILY 11/16/18 11/16/18 History [Vitamin B-12] estradiol [Vagifem] 10 mcg VAGINAL 2XWK 11/16/18 11/16/18 History metoprolol succinate 12.5 mg PO Q OTHER DAY 11/16/18 11/16/18 History triamcinolone acetonide 1 applic TOPICAL BID PRN 11/16/18 11/16/18 History Past Med/Surg History Medical History Asthma Obstipation (Acute) Ectopic beats Right bundle branch block (RBBB) Hemorrhoids (Chronic) Bleeding hemorrhoid Hypothyroid Diabetes Kidney stone Hypertension (Chronic) Social History Current Living Situation: Alone Other Information That Helps Us Care for You: No Feels Safe at Home: Yes Safety Concerns: Feels Safe At This Time Smoking Status: Former smoker Hx Alcohol Use: No Hx Substance Use: No Beliefs That Will Affect Care: None Preferred Language: Lebanese Communication Ability: Effective Interventional Neuroradiologist Required: No Review of Systems Constitutional: no fever, no chills, no sweats and no fatigue Eyes: no diplopia and no worsening vision Ear, Nose, Mouth, Throat: no dizziness, no nasal discharge, no facial pain and no sore throat Respiratory: no cough, no dyspnea and no wheezing Cardiovascular: no chest pain, no palpitations, no lightheadedness and no syncope Gastrointestinal: + nausea, + cramping, + constipation and + blood in stools ( bright red blood on paper ); no vomiting and no diarrhea/loose stools no diarrhea Genitourinary (Female): no dysuria, no urinary frequency and no urinary incontinence Musculoskeletal: no back pain, no joint pain, no swelling and no muscle weakness Integumentary: no rash, no lesions and no wounds Neurologic: no gait abnormality, no falls, no numbness, no dizziness and no syncope Psychiatric: no depression and no anxiety Endocrine: no fatigue Physical Exam 2 Vital Signs (Past 24 Hours): Last Vital Signs Temp 36.6 C 11/16/18 15:44 Pulse 82 11/16/18 15:44 Resp 20 11/16/18 15:44 BP 134/85 11/16/18 15:44 Pulse Ox 96 11/16/18 15:44 Physical Exam: General: awake, alert, no apparent distress Head: Normocephalic, atraumatic ENT: PERRL, EOMI, no pharyngeal exudate, mucous membranes moist Chest: Clear to auscultation, on room air, no adventitious breath sounds Cardiac: Regular rate and rhythm, no murmur, no JVD, normal peripheral pulses, good capillary refill Abdominal: active BS x 4 quadrants, soft, slightly distended, tender to palpation in all quadrants. Extremities: Normal inspection, no peripheral edema or erythema, calfs nontender to palpation Psych: Normal mood and affect Neuro: AAO x 3, strength intact bilaterally and related 5/5, no motor deficits, speech is clear, no peripheral sensory deficits Results & Data Diagnostic Findings KUB HISTORY: severe constipation COMPARISON: Abdomen and pelvis CT 11/14/2018. KUB 10/05/2019. FINDINGS: There is again noted a large stool ball within the rectum. This measures approximately 8.6 cm. There is moderate well-formed stool seen throughout the remaining colon. No dilated loops of small bowel to suggest an obstruction. Prior cholecystectomy. No renal calculi. No ureteral calculi. No pneumoperitoneum or pneumatosis. IMPRESSION: No significant change in the large rectal stool ball which measures 8.6 cm. Code Status & VTE Plan Code Status Full Supervising Physician Co-Signing Physician Notes Pt seen/examined in conjunction with JEFFRY Ruiz. Orders formulated with AP. 87 y/o F Hx hemorrhoids, hypothyroidism, DM, HTN, HLD, asthma - presents with abdominal pain. Severe stool imoaction with sterchocolitis on CT. The pt refused disimpaction without sedation. OE AAO x 3 - lying on side - no acute distress S1,2 R CTAB NT in mid abdomen No CCE No deficits P: We are providing oral laxatives this PM resembling a bowel prep. She would benefit form a milk/mollassess enema which perhaps could be done with some numbing cream. Absent this option, sedation an disimpaction - possibly endoscopic, should likely b undertaken. GI is consulted and were contacted by the ER attending. We will place her on IVF, a sliding scale and cont her current med reg. _ (1) Hemorrhoids Hemorrhoid type: unspecified Qualified Code(s): K64.9 - Unspecified hemorrhoids
[2018-11-16] MEDS ORDERED: LORazepam 1 MG TAB PO STA (20:01)
[2018-11-16] MEDS ORDERED: ONDANSETRON INJ 2 MG/ML 2 ML VIAL IV PRN (20:01)
[2018-11-16] MEDS ORDERED: ACETAMINOPHEN 325 MG TAB PO PRN (20:01)
[2018-11-16] MEDS ORDERED: POTASSIUM CHLORIDE 20 MEQ in DEXTROSE 5% 1,000 ML IV SCH (20:30)
[2018-11-16] MEDS ORDERED: BISACODYL 5 MG TABEC PO ONE (20:30)
[2018-11-16] MEDS ORDERED: LIDOCAINE HCL 2% JELLY 30ML TUBE EXT ONE (20:30)
[2018-11-16] MEDS ORDERED: LIDOCAINE 2% JELLY 5 ML TUBE EXT ONE (21:00)
[2018-11-16 21:15] LABS: Albumin Level 2.8 gm/dl (3.4-5.0); BUN Creatinine Ratio 19.1 (10-20); Calcium 9.4 mg/dl (8.5-10.1); Creatinine Clr Calc Pharmacy 29.7 ml/min; Est GFR (African American) 43.8; Est GFR (Non-African American) 37.8; Potassium 3.8 mmol/L (3.5-5.1)
[2018-11-16 21:18] LABS: Albumin Globulin Ratio 0.7 (0.9-2); Bilirubin,Total 0.9 mg/dl (0.2-1); Globulin 3.9 gm/dl (2.5-4.0); Total Protein 6.7 gm/dl (6.4-8.2)
[2018-11-16] MEDS: D5W AND 1/2NSS + 20MEQ KCL 20 MEQ/1,000 ML BAG IV SCH (21:23)
[2018-11-16] MEDS: POLYETHYLENE (MIRALAX) 17 GM PACK PO SCH ×2 (22:25→23:53)
[2018-11-17 07:14] LABS: Hematocrit (blood only) 38.7 % (37-47); Hemoglobin 12.5 g/dL (12.0-16.0); Mean Corpuscular Hgb Conc 32.3 g/dL (32-36); Mean Corpuscular Volume 92.8 fL (80-100); Mean Platelet Volume 10.7 fL (7.4-10.4); Platelet Count 199 K/uL (130-400); RDW Coefficient of Variation 13.8 % (11.5-14.5); RDW Standard Deviation 46.7 fL (36.4-46.3); Red Blood Count 4.17 M/uL (4.2-5.4); White Blood Count 13.03 K/uL (4.8-10.8)
[2018-11-17 07:24] LABS: Prothrombin Time 10.1 Seconds (9.0-12.0)
[2018-11-17 07:52] LABS: Albumin Level 2.8 gm/dl (3.4-5.0); BUN Creatinine Ratio 17.8 (10-20); Calcium 9.2 mg/dl (8.5-10.1); Creatinine Clr Calc Pharmacy 33.4 ml/min; Est GFR (African American) 50.4; Est GFR (Non-African American) 43.5; Potassium 3.8 mmol/L (3.5-5.1)
[2018-11-17 07:54] LABS: Albumin Globulin Ratio 0.7 (0.9-2); Bilirubin,Total 0.8 mg/dl (0.2-1); Globulin 4.1 gm/dl (2.5-4.0); Total Protein 6.9 gm/dl (6.4-8.2)
[2018-11-17] MEDS: ENOXAPARIN INJ 40 MG/0.4 ML SYR SQ SCH (08:47)
[2018-11-17] MEDS: D5W AND 1/2NSS + 20MEQ KCL 20 MEQ/1,000 ML BAG IV SCH (08:47)
--- NOTE | 2018-11-17 10:05 | Gastrointestinal Consultation ---
Date of Consultation November 17, 2018 Assessment & Plan (1) Fecal impaction: (2) Hemorrhoids: 1) Hemorrhoids: Refuses any topical therapy stating "no one is touching me there". 2) Fecal impaction: Start MiraLAX 17 g po BID. Manual disimpaction by primary team if no improvement. 3) Supportive care per primary team. History of Present Illness Reason for Consultation: Hemorrhoids Requesting Physician: Claudia Ruiz PA-C Attending Physician: Allison Kong MD History of Present Illness Patient is a 87 year-old female with a history of hemorrhoids which she states she has had "for many years". She states she was doing well until October of 2018. At that time, she had taken a cruise and developed an upper respiratory virus which developed into bronchitis. She states she had taken many medications at this time to help her symptoms including oral antibiotics and inhaled steroids as well as albuterol. Records from her visit were able to be reviewed in her outpatient chart. After this illness, she states she had become weak and more sedentary and developed acute constipation which she reports is unusual for her. Prior to arrival at the ER, she states her hemorrhoids had become very engorged and extremely painful. States she was unable to sit, walk or sleep. There was no associated abdominal pain but occasional bright red rectal bleeding and notable rectal lumps. On arrival, she did have a CT a/p which demonstrated "large stool ball within the rectum". This measured approximately 8.6 cm in diameter. She was was given MiraLAX as well as enemas and patient did have some passage of stool and she reports belief that she has passed "most of it". On arrival, she states her rectal pain was a 9/10 but is now "better" at a 7/10 in intensity. She states she is now able lay on her back and sleep. No other GI complaints at present. Allergies Allergy/AdvReac Type Severity Reaction Status Date / Time levofloxacin Allergy Mild ITCHING Verified 11/16/18 19:03 (TAVANIC = LEVOFLOXACIN IV,) Penicillins Allergy Mild RASH Verified 11/16/18 19:03 latex Allergy Unknown RASH Verified 11/16/18 19:03 metronidazole Allergy Unknown UNKNOWN Verified 11/16/18 19:03 Home Medications Home Medications Medication Instructions Recorded Confirmed Type acetaminophen-codeine 1 tab PO QID PRN 11/14/18 11/16/18 History [Tylenol-Codeine #3] albuterol sulfate [Ventolin HFA] 2 puff INHALATION Q4 PRN 11/14/18 11/16/18 History amlodipine 2.5 mg PO QAM 11/14/18 11/16/18 History amlodipine 5 mg PO HS 11/14/18 11/16/18 History aspirin [Aspir-81] 81 mg PO Q2D 11/14/18 11/16/18 History budesonide-formoterol [Symbicort] 2 puff INHALATION BID 11/14/18 11/16/18 History calcitriol 0.5 mcg PO BID 11/14/18 11/16/18 History cholestyramine (with sugar) 4 g PO BID 11/14/18 11/16/18 History metformin 500 mg PO DAILY 11/14/18 11/16/18 History peg 400-propylene glycol [Systane 2 drp OPB TID 11/14/18 11/16/18 History Ultra] ranitidine HCl [Zantac 75] 150 mg PO BID PRN 11/14/18 11/16/18 History thyroid (pork) [[place] Thyroid] 30 mg PO QAM 11/14/18 11/16/18 History acetaminophen [Tylenol] 325 - 650 mg PO QID PRN 11/16/18 11/16/18 History conjugated estrogens [Premarin] 1 applic VAGINAL UD 11/16/18 11/16/18 History cyanocobalamin (vitamin B-12) 500 mcg PO DAILY 11/16/18 11/16/18 History [Vitamin B-12] estradiol [Vagifem] 10 mcg VAGINAL 2XWK 11/16/18 11/16/18 History metoprolol succinate 12.5 mg PO Q OTHER DAY 11/16/18 11/16/18 History triamcinolone acetonide 1 applic TOPICAL BID PRN 11/16/18 11/16/18 History Patient History Medical History Asthma Obstipation (Acute) Ectopic beats Right bundle branch block (RBBB) Hemorrhoids (Chronic) Bleeding hemorrhoid Hypothyroid Diabetes Kidney stone Hypertension (Chronic) Social History Current Living Situation: Alone Other Information That Helps Us Care for You: No Feels Safe at Home: Yes Safety Concerns: Feels Safe At This Time Smoking Status: Former smoker Hx Alcohol Use: No Hx Substance Use: No Beliefs That Will Affect Care: None Preferred Language: Mongolian Communication Ability: Effective [place] Required: No Review of Systems Constitutional: as per Subjective / HPI Ear, Nose, Mouth, Throat: no problem reported Respiratory: no problem reported Cardiovascular: no problem reported Gastrointestinal: as per Subjective / HPI Musculoskeletal: no problem reported Integumentary: no problem reported Neurologic: no problem reported Psychiatric: no problem reported Physical Exam 2 Vital Signs (Past 24 Hours): Last Vital Signs Temp 36.6 C 11/17/18 07:16 Pulse 72 11/17/18 07:16 Resp 18 11/17/18 07:16 BP 134/70 11/17/18 07:16 Pulse Ox 93 11/17/18 07:16 Constitutional: WD/WN, vitals as above Respiratory: normal respiratory effort Musculoskeletal: no pedal edema Skin: no rashes, warm and dry Rectal: Patient overtly refused a SUSU. She was amenable to visualization of the anal canal but would not allow any direct palpation of the area. RENE Pfeiffer present as diver assistant. A 2cm thrombosed external hemorrhoid noted at the 12 o'clock position, 0.5 cm thrombosed external hemorrhoid at 5 o'clock position and a 1 cm external hemorrhoid at the 7 o'clock position. Psychiatric: A+Ox3, euthymic affect _ (1) Hemorrhoids Hemorrhoid type: unspecified Qualified Code(s): K64.9 - Unspecified hemorrhoids
[2018-11-17] MEDS: POLYETHYLENE (MIRALAX) 17 GM PACK PO SCH ×2 (11:21→20:07)
--- NOTE | 2018-11-17 11:46 | Surgery Consultation ---
Date of Consultation November 17, 2018 Assessment & Plan (1) Hemorrhoids: 87 year-old female with 5 day history of constipation and remote bleeding hemorrhoids ( 1 day) with rectal pain. CT scan and KUB showing dilated rectum with large stool ball present consistent with fecal impaction. Examination shows large external thrombosed hemorrhoids however no active bleeding. Patient today having no rectal pain and having liquid bowel movements this morning after milk of molasses enema and PO Miralax. She is refusing any topical hemorrhoid treatment or any SUSU. Plan: Since patient is not having any pain and now having liquid bowel movements after enema/PO laxatives would recommend to continue supportive care. She is refusing any hemorrhoidal treatment even topical recommended by GI. Recommend to continue oral laxative and possibly another enema if she is able to tolerate Once discharged she should be started on bowel regimen given moderate formed stool in colon with fiber and stool softeners daily. Could consider continuation of oral laxative as well as oral mineral oil. She may follow-up with Dr. Solis as an outpatient in a few weeks for hemorrhoidectomy if she has recurrent pain/discomfort or if there is no improvement in external hemorrhoids. Our services signing off (2) Fecal impaction: Plan as above Supervising Physician Co-Signing Physician Notes Dr. Solis has seen and examined patient, developed assessment and plan. History of Present Illness Reason for Consultation: Fecal impaction , Thrombosed hemorrhoids Attending Physician: Allison Kong MD History of Present Illness Linh is a 87 year-old female who presented to emergency department with complaint of rectal pain, constipation, and abdominal pain for the past 5 days. She states she usually has loose stools and does not have history of constipation. States she was having severe rectal pain and discomfort and was not able to sit, sleep, and lay down. She presented to emergency room on 11/14 with rectal bleeding from hemorrhoids and had a CT scan which showed distended rectum up to 6.7 cm and moderate formed stool in rectum and colon concerning for stercoral proctitis. She was sent home from emergency room with preparation H. She then presented to emergency room again with persistent rectal pain, abdominal pain, and nausea. Repeat KUB showing persistent stool ball in the rectum measuring 8.7 cm. Linh states she is feeling much better today. Had a milk of molasses enema yesterday and has had multiple loose stools all morning. States she is not having any rectal pain currently and is able to sit and sleep. She states she will not let the nurses help clean her however because it is very sensitive. She would like to go home today. Allergies Allergy/AdvReac Type Severity Reaction Status Date / Time levofloxacin Allergy Mild ITCHING Verified 11/16/18 19:03 (TAVANIC = LEVOFLOXACIN IV,) Penicillins Allergy Mild RASH Verified 11/16/18 19:03 latex Allergy Unknown RASH Verified 11/16/18 19:03 metronidazole Allergy Unknown UNKNOWN Verified 11/16/18 19:03 Home Medications Home Medications Medication Instructions Recorded Confirmed Type acetaminophen-codeine 1 tab PO QID PRN 11/14/18 11/16/18 History [Tylenol-Codeine #3] albuterol sulfate [Ventolin HFA] 2 puff INHALATION Q4 PRN 11/14/18 11/16/18 History amlodipine 2.5 mg PO QAM 11/14/18 11/16/18 History amlodipine 5 mg PO HS 11/14/18 11/16/18 History aspirin [Aspir-81] 81 mg PO Q2D 11/14/18 11/16/18 History budesonide-formoterol [Symbicort] 2 puff INHALATION BID 11/14/18 11/16/18 History calcitriol 0.5 mcg PO BID 11/14/18 11/16/18 History cholestyramine (with sugar) 4 g PO BID 11/14/18 11/16/18 History metformin 500 mg PO DAILY 11/14/18 11/16/18 History peg 400-propylene glycol [Systane 2 drp OPB TID 11/14/18 11/16/18 History Ultra] ranitidine HCl [Zantac 75] 150 mg PO BID PRN 11/14/18 11/16/18 History thyroid (pork) [[place] Thyroid] 30 mg PO QAM 11/14/18 11/16/18 History acetaminophen [Tylenol] 325 - 650 mg PO QID PRN 11/16/18 11/16/18 History conjugated estrogens [Premarin] 1 applic VAGINAL UD 11/16/18 11/16/18 History cyanocobalamin (vitamin B-12) 500 mcg PO DAILY 11/16/18 11/16/18 History [Vitamin B-12] estradiol [Vagifem] 10 mcg VAGINAL 2XWK 11/16/18 11/16/18 History metoprolol succinate 12.5 mg PO Q OTHER DAY 11/16/18 11/16/18 History triamcinolone acetonide 1 applic TOPICAL BID PRN 11/16/18 11/16/18 History Patient History Medical History Asthma Obstipation (Acute) Ectopic beats Right bundle branch block (RBBB) Hemorrhoids (Chronic) Bleeding hemorrhoid Hypothyroid Diabetes Kidney stone Hypertension (Chronic) Social History Current Living Situation: Alone Other Information That Helps Us Care for You: No Feels Safe at Home: Yes Safety Concerns: Feels Safe At This Time Smoking Status: Former smoker Hx Alcohol Use: No Hx Substance Use: No Beliefs That Will Affect Care: None Communication Ability: Effective Review of Systems Constitutional: as per Subjective / HPI Physical Exam 2 Vital Signs (Past 24 Hours): Last Vital Signs Temp 36.6 C 11/17/18 07:16 Pulse 72 11/17/18 07:16 Resp 18 11/17/18 07:16 BP 134/70 11/17/18 07:16 Pulse Ox 93 11/17/18 07:16 Constitutional: WD/WN, vitals as above no acute distress Respiratory: normal respiratory effort Gastrointestinal (Abdomen): Visual rectal examination as patient would not allow any palpation or SUSU. There are large external hemorrhoids present at 12 oclock (thrombosed), 5 oclock (Thrombosed) and 7 oclock with some liquid stool present. No active bleeding. Skin: no rashes, warm and dry Psychiatric: A+Ox3, euthymic affect Results & Data Laboratory Results 11/17/18 11/17/18 11/17/18 Range/Units 06:51 06:51 06:51 WBC 13.03 H (4.8-10.8) K/uL RBC 4.17 L (4.2-5.4) M/uL Hgb 12.5 (12.0-16.0) g/dL Hct 38.7 (37-47) % MCV 92.8 (80-100) fL MCH 30.0 (25-34) pg MCHC 32.3 (32-36) g/dL RDW Std Deviation 46.7 H (36.4-46.3) fL RDW Coeff of Gen 13.8 (11.5-14.5) % Plt Count 199 (130-400) K/uL MPV 10.7 H (7.4-10.4) fL Immature Gran % (Auto) % Neut % (Auto) % Lymph % (Auto) % [place] % (Auto) % Eos % (Auto) % Baso % (Auto) % Immature Gran # (Auto) (0.00-0.02) K/uL Neut # (Auto) (1.4-6.5) K/uL Lymph # (Auto) (1.2-3.4) K/uL [place] # (Auto) (0.11-0.59) K/uL Eos # (Auto) (0-0.5) K/uL Baso # (Auto) (0-0.2) K/uL PT 10.1 (9.0-12.0) Seconds INR 1.0 (0.9-1.1) Sodium 138 Potassium 3.8 Chloride 107 Carbon Dioxide 24 Anion Gap 7.0 BUN 20 H Creatinine 1.14 Est Cr Clr Drug Dosing 33.4 Est GFR ( Amer) 50.4 Est GFR (Non-Af Amer) 43.5 BUN/Creatinine Ratio 17.8 Glucose 127 H Calcium 9.2 Total Bilirubin 0.8 AST 37 ALT 58 Alkaline Phosphatase 95 Total Protein 6.9 Albumin 2.8 L Globulin 4.1 H Albumin/Globulin Ratio 0.7 L Lipase 11/16/18 11/16/18 11/16/18 Range/Units 20:46 17:07 17:07 WBC 15.32 H (4.8-10.8) K/uL RBC 4.17 L (4.2-5.4) M/uL Hgb 12.6 (12.0-16.0) g/dL Hct 38.6 (37-47) % MCV 92.6 (80-100) fL MCH 30.2 (25-34) pg MCHC 32.6 (32-36) g/dL RDW Std Deviation 47.0 H (36.4-46.3) fL RDW Coeff of Gen 14.0 (11.5-14.5) % Plt Count 216 (130-400) K/uL MPV 11.3 H (7.4-10.4) fL Immature Gran % (Auto) 0.4 % Neut % (Auto) 75.6 % Lymph % (Auto) 14.4 % [place] % (Auto) 9.3 % Eos % (Auto) 0.2 % Baso % (Auto) 0.1 % Immature Gran # (Auto) 0.06 H (0.00-0.02) K/uL Neut # (Auto) 11.58 H (1.4-6.5) K/uL Lymph # (Auto) 2.20 (1.2-3.4) K/uL [place] # (Auto) 1.43 H (0.11-0.59) K/uL Eos # (Auto) 0.03 (0-0.5) K/uL Baso # (Auto) 0.02 (0-0.2) K/uL PT (9.0-12.0) Seconds INR (0.9-1.1) Sodium 139 Cancelled Potassium 3.8 Cancelled Chloride 107 Cancelled Carbon Dioxide 22 Cancelled Anion Gap 10.0 Cancelled BUN 24 H Cancelled Creatinine 1.28 H Cancelled Est Cr Clr Drug Dosing 29.7 Cancelled Est GFR ( Amer) 43.8 Cancelled Est GFR (Non-Af Amer) 37.8 Cancelled BUN/Creatinine Ratio 19.1 Cancelled Glucose 112 H Cancelled Calcium 9.4 Cancelled Total Bilirubin 0.9 Cancelled AST 36 Cancelled ALT 56 Cancelled Alkaline Phosphatase 93 Cancelled Total Protein 6.7 Cancelled Albumin 2.8 L Cancelled Globulin 3.9 Cancelled Albumin/Globulin Ratio 0.7 L Cancelled Lipase Cancelled Diagnostic Findings ABDOMEN AND PELVIS CT WITHOUT CONTRAST CT DOSE: 487.43 mGy.cm HISTORY: abdominal pain kidney stone TECHNIQUE: Multiaxial CT images of the abdomen and pelvis were performed without contrast. A dose lowering technique was utilized adhering to the principles of ALARA. COMPARISON STUDY: Renal ultrasound 09/29/2018. FINDINGS: Bibasilar linear densities consistent with subsegmental atelectasis. No pneumoperitoneum. No pneumatosis. No suspicious lytic or blastic osseous lesions. Small hiatus hernia. Cholecystectomy. Mild hepatic steatosis. The unenhanced spleen, pancreas, and adrenal glands are unremarkable. Mild calcified plaque within the normal caliber abdominal aorta. No retroperitoneal lymphadenopathy. There are bilateral renal hypodense lesions. These are incompletely characterize on this noncontrast study but statistically represent cysts. Dominant lesion within the right kidney measures 4.9 cm. There is a 4 mm stone within the lower pole of the right kidney. No left renal calculi. No ureteral calculi. No hydronephrosis. The bladder is moderately distended. No bladder wall thickening. There is mild pelvic floor collapse. The uterus and ovaries are unremarkable. Large amount well-formed stool within the rectum. The rectum is distended up to 6.7 cm. Moderate well-formed stool throughout the remaining colon. There may be mild rectal wall thickening given the degree of distention. This raises the possibility of a stercoral proctitis. Multiple colonic diverticula. No evidence for acute diverticulitis. No dilated loops of small bowel to suggest an obstruction. Normal appendix. IMPRESSION: 1. Large amount well-formed stool within the rectum. The rectum is distended up to 6.7 cm. Moderate well-formed stool throughout the remaining colon. There may be mild rectal wall thickening given the degree of distention. This raises the possibility of a stercoral proctitis. 2. There is mild pelvic floor collapse. The distended and stool-filled rectum demonstrates mass effect along the bladder base and could result in mass effect along the urethra given the pelvic floor collapse. Therefore, this could account for the bladder distention. Catheterization is recommended for further evaluation. 3. Colonic diverticulosis. No evidence for diverticulitis. 4. Right-sided nephrolithiasis. No ureteral stones. No hydronephrosis. KUB HISTORY: severe constipation COMPARISON: Abdomen and pelvis CT 11/14/2018. KUB 10/05/2019. FINDINGS: There is again noted a large stool ball within the rectum. This measures approximately 8.6 cm. There is moderate well-formed stool seen throughout the remaining colon. No dilated loops of small bowel to suggest an obstruction. Prior cholecystectomy. No renal calculi. No ureteral calculi. No pneumoperitoneum or pneumatosis. IMPRESSION: No significant change in the large rectal stool ball which measures 8.6 cm. _ (1) Hemorrhoids Hemorrhoid type: unspecified Qualified Code(s): K64.9 - Unspecified hemorrhoids
[2018-11-17] MEDS ORDERED: MAGNESIUM CITRATE 296 ML/BTL PO STA (17:42)
--- NOTE | 2018-11-17 17:47 | Hospitalist Progress Note ---
Date of Service November 17, 2018 Assessment & Plan (1) Obstipation: With large fecal impaction seen on CT abd/pel as outpt on 11/14 and again here on KUB. With external thrombosed hemorrhoids with severe rectal pain on admission--> seen by GI and Surgery today and pt refusing all treatment. She reports pain is improved greatly now with passing of some stool and dulcolax, Miralax yesterday, although does not seem that she passed a whole lot. - KUB reviewed showing 8.6 cm stool ball Advanced diet to regular as tolerated -dc IVFs -add on Mag Citrate bottle tonight -add docusate 100mg bid -add daily Miralax -repeat KUB in AM and she said maybe she will let me perform an exam tomorrow if the pain is improved -can dc to home tomorrow if has more substantial BM and is improved -advised to dc cholestyramine at home as can cause constipation (2) Hemorrhoids: - GI and Surgery consulted-she refused teatment other than Tux pads -f/u with Surgery as outpt if desires hemorrhoidectomy in future (3) Hypothyroid: -restart [place] thyroid (4) Diabetes: - Last A1C was 6.2% in May 2018 and was discussed with her PCP- Dr. Silva that they would eventually discontinue metformin. She has not had any trouble with her glucoses as an outpatient. -restart metformin in AM (5) Asthma: Stable -restarted home inhalers of ventolin and symbicort (6) Hypertension: BPs slightly high as was not getting her po meds -restart amlodipine 2.5 mg QAM and 5 mg QPM, metoprolol succ 12.5 mg every other day, asa 81 mg (7) Dysuria: repeat UA now (8) DVT prophylaxis: lovenox subq, teds, scds Dispo-to home tomorrow if has more substantial BMs Subjective Had some chunks of stool followed by a large amount of liquid stool pass this AM. None since then but feels her rectal pain is much improved. SHe would not allow me to look at her bottom or perform a SUSU. She is hungry again and said she hasn't been hungry or able to eat in 3 days. Discussed the case with GI SHe is also c/o mild dysuria and wonders if she has a UTI. UA and Ur cx from yesterday consistent with contaminated sample. Denies CP or SOB. Review of Systems All systems reviewed & are unremarkable except as noted in HPI & below Physical Exam 2 Vital Signs (Past 24 Hours): Last Vital Signs Temp 36.6 C 11/17/18 15:21 Pulse 57 L 11/17/18 15:21 Resp 18 11/17/18 15:21 BP 149/52 H 11/17/18 15:21 Pulse Ox 97 11/17/18 15:21 Constitutional: WD/WN, vitals as above Eyes: PERRL, conjunctivae normal, anicteric sclerae ENMT: external ear and nose normal, oropharynx normal Neck: trachea midline, no thyromegaly Respiratory: normal respiratory effort, lungs clear to auscultation Cardiovascular: RRR, no murmur, no edema Gastrointestinal (Abdomen): normal bowel sounds, soft, nontender, no hepatosplenomegaly Musculoskeletal: Extremities: extremities normal to inspection; no cyanosis and no clubbing Skin: no rashes, warm and dry Neurologic: moves all extremities and awake; no focal motor deficits Psychiatric: A+Ox3, euthymic affect Results & Data Laboratory Results 11/17/18 11/17/18 11/17/18 Range/Units 06:51 06:51 06:51 WBC 13.03 H (4.8-10.8) K/uL RBC 4.17 L (4.2-5.4) M/uL Hgb 12.5 (12.0-16.0) g/dL Hct 38.7 (37-47) % MCV 92.8 (80-100) fL MCH 30.0 (25-34) pg MCHC 32.3 (32-36) g/dL RDW Std Deviation 46.7 H (36.4-46.3) fL RDW Coeff of Gen 13.8 (11.5-14.5) % Plt Count 199 (130-400) K/uL MPV 10.7 H (7.4-10.4) fL PT 10.1 (9.0-12.0) Seconds INR 1.0 (0.9-1.1) Sodium 138 (136-145) mmol/L Potassium 3.8 (3.5-5.1) mmol/L Chloride 107 (98-107) mmol/L Carbon Dioxide 24 (21-32) mmol/L Anion Gap 7.0 (3-11) BUN 20 H (7-18) mg/dl Creatinine 1.14 (0.6-1.2) mg/dl Est Cr Clr Drug Dosing 33.4 ml/min Est GFR ( Amer) 50.4 Est GFR (Non-Af Amer) 43.5 BUN/Creatinine Ratio 17.8 (10-20) Glucose 127 H (70-99) mg/dl Calcium 9.2 (8.5-10.1) mg/dl Total Bilirubin 0.8 (0.2-1) mg/dl AST 37 (15-37) U/L ALT 58 (12-78) U/L Alkaline Phosphatase 95 (45-117) U/L Total Protein 6.9 (6.4-8.2) gm/dl Albumin 2.8 L (3.4-5.0) gm/dl Globulin 4.1 H (2.5-4.0) gm/dl Albumin/Globulin Ratio 0.7 L (0.9-2) 11/16/18 Range/Units 20:46 WBC (4.8-10.8) K/uL RBC (4.2-5.4) M/uL Hgb (12.0-16.0) g/dL Hct (37-47) % MCV (80-100) fL MCH (25-34) pg MCHC (32-36) g/dL RDW Std Deviation (36.4-46.3) fL RDW Coeff of Gen (11.5-14.5) % Plt Count (130-400) K/uL MPV (7.4-10.4) fL PT (9.0-12.0) Seconds INR (0.9-1.1) Sodium 139 (136-145) mmol/L Potassium 3.8 (3.5-5.1) mmol/L Chloride 107 (98-107) mmol/L Carbon Dioxide 22 (21-32) mmol/L Anion Gap 10.0 (3-11) BUN 24 H (7-18) mg/dl Creatinine 1.28 H (0.6-1.2) mg/dl Est Cr Clr Drug Dosing 29.7 ml/min Est GFR ( Amer) 43.8 Est GFR (Non-Af Amer) 37.8 BUN/Creatinine Ratio 19.1 (10-20) Glucose 112 H (70-99) mg/dl Calcium 9.4 (8.5-10.1) mg/dl Total Bilirubin 0.9 (0.2-1) mg/dl AST 36 (15-37) U/L ALT 56 (12-78) U/L Alkaline Phosphatase 93 (45-117) U/L Total Protein 6.7 (6.4-8.2) gm/dl Albumin 2.8 L (3.4-5.0) gm/dl Globulin 3.9 (2.5-4.0) gm/dl Albumin/Globulin Ratio 0.7 L (0.9-2) _ (1) Hypothyroid Hypothyroidism type: acquired Qualified Code(s): E03.9 - Hypothyroidism, unspecified (2) Hemorrhoids Hemorrhoid type: unspecified Qualified Code(s): K64.9 - Unspecified hemorrhoids (3) Hypertension Hypertension type: essential hypertension Qualified Code(s): I10 - Essential (primary) hypertension
[2018-11-17] MEDS ORDERED: METOPROLOL SUCC 25MG EXT REL TAB PO SCH (19:00)
[2018-11-17] MEDS: DOCUSATE SODIUM 100 MG CAP PO SCH (20:13)
[2018-11-17] MEDS: CALCITRIOL 0.25 MCG CAPSULE PO SCH (20:17)
[2018-11-17] MEDS: BUDESONIDE/FORMOTEROL FUMARATE 160/4.5 60 PUFFS/INHALER INH SCH (20:18)
[2018-11-17] MEDS ORDERED: AMLODIPINE BESYLATE 5 MG TAB PO SCH (21:00)
[2018-11-18] MEDS ORDERED: ARMOUR THYROID 30 MG TAB PO SCH (06:30)
[2018-11-18] MEDS ORDERED: METFORMIN HCL 500 MG TAB PO SCH (07:30)
--- NOTE | 2018-11-18 08:06 | XRay Report ---
KUB HISTORY: f/u fecal impaction COMPARISON: KUB 11/16/2018. FINDINGS: Prior cholecystectomy. No dilated loops of bowel to suggest an obstruction. The rectal stoo l ball is no longer identified and may have passed in the interval. No renal calculi. No ureteral ca lculi. No pneumoperitoneum or pneumatosis. IMPRESSION: The rectal stool ball is no longer identified and may have passed in the interval. No evidence for awa wel obstruction. Electronically signed by: Arpan Queen M.D. 11/18/2018 8:05 AM
[2018-11-18] MEDS: DOCUSATE SODIUM 100 MG CAP PO SCH (08:12)
[2018-11-18] MEDS: ENOXAPARIN INJ 40 MG/0.4 ML SYR SQ SCH ×2 (08:13→08:21)
[2018-11-18] MEDS: POLYETHYLENE (MIRALAX) 17 GM PACK PO SCH (08:14)
[2018-11-18] MEDS: CALCITRIOL 0.25 MCG CAPSULE PO SCH (08:16)
[2018-11-18] MEDS: BUDESONIDE/FORMOTEROL FUMARATE 160/4.5 60 PUFFS/INHALER INH SCH (08:17)
[2018-11-18] MEDS ORDERED: METOPROLOL SUCC 25MG EXT REL TAB PO SCH (09:00)
[2018-11-18] MEDS ORDERED: CYANOCOBALAMIN 500 MCG TABLET (VITAMIN B-12) PO SCH (09:00)
[2018-11-18] MEDS ORDERED: POLYETHYLENE (MIRALAX) 17 GM PACK PO SCH (09:00)
[2018-11-18] MEDS ORDERED: AMLODIPINE BESYLATE 5 MG TAB PO SCH (09:00)
--- NOTE | 2018-11-18 13:37 | Discharge Summary ---
Date of Service November 18, 2018 Admission HPI Per Admitting Provider This is a 87 yo F with PMHx of hemorrhoids, hypothyroidism, DM, HTN, HLD, asthma , who presents with abdominal pain. Pt was seen here in the ER on 11/14 for similar complaints. She continues to have worsening pain which started 5 days ago. She has been unable to tolerate oral intake due to nausea, no vomiting. She admits to very poor water intake at baseline and may only have 1 8oz cup total in a day. Imaging of the abdomen reveals large stool ball which measures 8.6 cm. This was demonstrated on CT from imaging on 11/14 and in comparison is relatively unchanged. Pt is very apprehensive about treatment with enema but is agreeable. Principal Diagnosis Constipation, UTI Discharge Exam Constitutional WD/WN, vitals as above Eyes PERRL, conjunctivae normal, anicteric sclerae ENMT external ear and nose normal, oropharynx normal Neck trachea midline, no thyromegaly Respiratory normal respiratory effort, lungs clear to auscultation Cardiovascular RRR, no murmur, no edema Gastrointestinal (Abdomen) normal bowel sounds, soft, nontender, no hepatosplenomegaly (2 small thrombosed hemorrhoids at 3:00 and 5:00 positions, nontendern, no gross bleeding, would not allow SUSU) Musculoskeletal Extremities: extremities normal to inspection; no cyanosis and no clubbing Skin no rashes, warm and dry Neurologic moves all extremities and awake; no focal motor deficits Psychiatric A+Ox3, euthymic affect Discharge Data Allergies Allergy/AdvReac Type Severity Reaction Status Date / Time levofloxacin Allergy Mild ITCHING Verified 11/16/18 19:03 (TAVANIC = LEVOFLOXACIN IV,) Penicillins Allergy Mild RASH Verified 11/16/18 19:03 latex Allergy Unknown RASH Verified 11/16/18 19:03 metronidazole Allergy Unknown UNKNOWN Verified 11/16/18 19:03 Consultations Gastroenterology General Surgery Hospital Course (1) Obstipation: With large fecal impaction seen on CT abd/pel as outpt on 11/14 and again here on KUB upon admission. With external thrombosed hemorrhoids with severe rectal pain on admission--> seen by GI and Surgery here and pt refusing all treatment. She reports pain is improved greatly now with passing of large amount of stool after receiving dulcolax, Miralax, Mag citrate, docusate. - KUB reviewed showing 8.6 cm stool ball--? repeat KUB on day of discharge with no further fecal impaction seen Was tolerating a regular diet received IVFs -continue docusate 100mg bid after dc -continue daily Miralax upon dc -advised to dc cholestyramine at home as can cause constipation (2) Hemorrhoids: - GI and Surgery consulted-she refused teatment other than Tux pads -f/u with Surgery as outpt if desires hemorrhoidectomy in future (3) Hypothyroid: -cont Elizabeth thyroid (4) Diabetes: - Last A1C was 6.2% in May 2018 and was discussed with her PCP- Dr. Silva that they would eventually discontinue metformin. She has not had any trouble with her glucoses as an outpatient. -continue metformin (5) Asthma: Stable -continue home inhalers of ventolin and symbicort (6) Hypertension: BPs slightly high as was not getting her po meds upon admission -continue amlodipine 2.5 mg QAM and 5 mg QPM, metoprolol succ 12.5 mg every other day, asa 81 mg (7) Dysuria: UA without overt evidence of infection Ur cx with mixed organisms indicating skin morteza contamination -f/u as outpt if symptoms persist (8) DVT prophylaxis: lovenox subq, teds, scds were provided Dispo-to home Total Time Total Time Spent Total Time Spent (In Minutes): >30 min Total Time Includes: Examination of the Patient, Discharge Planning and Medication Reconciliation Discharge Plan Discharge Items Patient Disposition: Home - Self-Care Reason For Visit: STOOL IMPACTION,CONSTIPATION Discharge Diagnosis: Fecal impaction,hemorrhoids, UTI Condition: Good Discharge Goals: Decrease discomfort, Diagnostic testing, Learn about illness and Therapeutic intervention Activity: Resume your previous activity Lifting: Gradually increase as tolerated Bathing: No limitations Bathing Comment: Should take warm baths to soak for your hemorrhoids Exercise/Sports: Gradually increase as tolerated Non-emergency contact: Primary Care Provider and Pharmacologist Call non-emergency contact if: you have any medication questions, your symptoms worsen, your pain is not controlled, your pain is worsening, your pain is unusual for you and your pain is concerning for you Follow-up/Referrals: Dean Henao, [Physician] - 12/01/18 1:00 pm (Please, follow up at [facility] with Dr. Henao's associate, Alisha SCHROEDER, on December 01 at 1: 00 pm. *This office is loated at [address] [facility] in [facility] ). If you need to change this appointment, call the office at [phone].) Ramirez Leong MD [Primary Care Provider] - 11/24/18 1:00 pm (Please, follow up at Dr. Leong's office with his biology laboratory assistant, Padmini Edwards PA-C, on November 24 at 1:00 pm. *If you need to change this appointment, call the office at [phone].) Diet: See below Diet Comment: High Fiber diet Addtl Provider Instructions: You were admitted with fecal impaction from constipation. You were treated with laxatives and had relief. Continue to take Miralax daily and docusate stool softener to prevent constipation. You can use Tucks pads and warms baths for your hemorrhoids. You can also use topical Preparation H as needed for hemorrhoid pain. Please follow up with GI and PCP as scheduled for you. You were also given an antibiotic for a presumed UTI. Prescriptions: New polyethylene glycol 3350 [Miralax] 17 gram Powder In Packet 17 g PO DAILY Qty: 30 RF: 0 docusate sodium 100 mg Capsule 100 mg PO BID Qty: 60 RF: 0 Continue albuterol sulfate [Ventolin HFA] 90 mcg/actuation Hfa Aerosol Inhaler 2 puff Inhalation Q4 PRN (Reason: Shortness Of Breath Or Wheezing) RF: 0 aspirin [Aspir-81] 81 mg Tablet,Delayed Release (Dr/Ec) 81 mg PO Q2D RF: 0 budesonide-formoterol [Symbicort] 160-4.5 mcg/actuation Hfa Aerosol Inhaler 2 puff INHALATION BID RF: 0 peg 400-propylene glycol [Systane Ultra] 0.4-0.3 % Drops 2 drp OPB TID RF: 0 ranitidine HCl [Zantac 75] 75 mg Tablet 150 mg PO BID PRN (Reason: Gi Upset) RF: 0 metformin 500 mg Tablet 500 mg PO DAILY RF: 0 amlodipine 2.5 mg Tablet 2.5 mg PO QAM RF: 0 amlodipine 5 mg Tablet 5 mg PO HS RF: 0 thyroid (pork) [Elizabeth Thyroid] 30 mg Tablet 30 mg PO QAM RF: 0 calcitriol 0.5 mcg Capsule 0.5 mcg PO BID RF: 0 acetaminophen [Tylenol] 325 mg Capsule 325 - 650 mg PO QID PRN (Reason: Pain) RF: 0 estradiol [Vagifem] 10 mcg Tablet 10 mcg VAGINAL 2XWK RF: 0 triamcinolone acetonide 0.1 % Cream 1 applic TOPICAL BID PRN (Reason: Rash) RF: 0 cyanocobalamin (vitamin B-12) [Vitamin B-12] 500 mcg Tablet 500 mcg PO DAILY RF: 0 conjugated estrogens [Premarin] 0.625 mg/gram Cream 1 applic Vaginal UD RF: 0 metoprolol succinate 25 mg Capsule,Sprinkle,Er 24hr 12.5 mg PO Q OTHER DAY RF: 0 Discontinued acetaminophen-codeine [Tylenol-Codeine #3] 300-30 mg Tablet 1 tab PO QID PRN (Reason: Pain) RF: 0 cholestyramine (with sugar) 4 gram Powder 4 g PO BID RF: 0 Stand-Alone Forms: [facility] Discharge Orders: Discharge Order (Routine); Ordered 11/18/18 Ordered By: Allison Kong Admission Data Admit Date/Time: 11/16/18 18:08 Attending Provider: Allison Kong Admit Provider: Edgar Flores Primary Care Provider: Ramirez Leong Other Providers: Dean Henao ; Edgar Flores ; Natasha Solis Service: Medical Other Interventions: Discharge Summary Assessment (RN) Last Done: 11/18/18 13:43 Pending Studies at Discharge: Yes Studies:: urine culture DC Date/Time DO NOT enter until pt leaves facility: 11/18/18 14:49
[2018-11-19] MEDS ORDERED: ASPIRIN 81 MG ECTAB PO SCH (09:00)
== END 2018-11-18 14:49 | disposition home or self-care (01) ==
LOC: ED 15:38 → 4W 15:38 → SUATTDRO 18:08 → 4W 19:22